=== PATIENT | male | born 1970 | race Caucasian/White ===

== ENCOUNTER 2022-05-28 07:23 | Emergency (ER) | payer OTHER ==
[2022-05-28] MEDS ORDERED: Boostrix 0.5 ML (Tdap) VIAL ONE (08:14)
== END 2022-05-28 08:42 | disposition home or self-care (01) ==
LOC: CSHERS 07:23
DX: S02.2XXA Fracture of nasal bones, initial encounter for closed fracture (principal); L03.213 Periorbital cellulitis; Z23 Encounter for immunization; X58.XXXA Exposure to other specified factors, initial encounter
CPT/HCPCS: 70486; 90471; 90715